=== PATIENT | female | born 1990 | race Hispanic/Latino ===

== ENCOUNTER 2016-11-03 22:52 | Emergency (ER) | payer OTHER ==
[2016-11-03] MEDS ORDERED: Zithromax 250 MG TABLET PO ONE (23:07)
[2016-11-03] MEDS ORDERED: PROVENTIL 2.5 MG/3 ML NEB IH ONE ×2 (23:07→23:18)
[2016-11-03] MEDS ORDERED: Zithromax 250 MG TABLET ONE (23:09)
--- NOTE | 2016-11-03 23:11 | ERPHSYRPT ---
- History of Present Illness Time Seen by Provider: 11/03/16 23:05 Source: patient Patient Subjective Stated Complaint: Pt sts sick x 4 days with cough that is productive however she does not know what color the sputum is because she swallows it. Sts fever at home. Denies vomiting/diarrhea. Sts body aches and headache. Sts sore throat. Triage Nursing Assessment: Pt alert, oriented, answers all questions appropriately. Skin p/w/d, resps non-labored. Pt ambulatory to tx room, steady gait noted. Lung sounds CTA bilat non-labored. Physician History: CC: cough Hx: 26 y/o healthy pt with no hx of lung disease. She has 4 day hx of cough, fever, congestion, aching. Symptoms moderate. LMP 1 1/2 weeks ago. Timing/Duration: day(s) (4) Allergies/Adverse Reactions: No Known Drug Allergies Allergy (Verified 11/03/16 23:02) Hx Tetanus, Diphtheria Vaccination/Date Given: Yes Hx Influenza Vaccination/Date Given: No Hx Pneumococcal Vaccination/Date Given: No Immunizations Up to Date: No - Review of Systems Constitutional: Fever, Chills, Fatigue, Malaise Eyes: No Symptoms Ears, Nose, & Throat: Nose Congestion Respiratory: Cough Abdominal/Gastrointestinal: No Vomiting, No Diarrhea Musculoskeletal: Myalgias Skin: No Rash - Past Medical History Pertinent Past Medical History: No - Past Surgical History Past Surgical History: No - Social History Smoking Status: Never smoker Exposure to second hand smoke: No Drug Use: none Patient Lives Alone: No - Female History Hx Last Menstrual Period: "before Lauren" - Nursing Vital Signs Nursing Vital Signs: Initial Vital Signs Temperature 100.7 F Temperature Source Oral Pulse Rate 97 Respiratory Rate 18 Blood Pressure 125/93 Pain Intensity 7 - Physical Exam General Appearance: alert Eye Exam: PERRL/EOMI Ears, Nose, Throat Exam: moist mucous membranes Neck Exam: normal inspection, non-tender, supple Respiratory Exam: normal breath sounds, lungs clear Cardiovascular Exam: regular rate/rhythm, No murmur Gastrointestinal/Abdomen Exam: soft, No tenderness, No distention Extremity Exam: normal inspection, normal range of motion Neurologic Exam: alert, oriented x 3, cooperative, sensation nml, No motor deficits Skin Exam: warm, dry, No rash SpO2 Interpretation: normal SpO2: 96 Oxygen Delivery: Room Air - Course Nursing assessment & vital signs reviewed: Yes Ordered Tests: Active Orders 24 hr Category Date Time Status Respiratory Nebulizer STAT RT 11/03/16 23:07 Active Medication Summary Generic Name Dose Route Start Last Admin Trade Name Nirmal PRN Reason Stop Dose Admin Albuterol Sulfate 2.5 mg 11/03/16 23:07 Proventil 2.5 Mg/3 Ml Neb IH 11/03/16 23:08 STAT ONE Azithromycin 500 mg 11/03/16 23:07 Zithromax 250 Mg Tablet PO 11/03/16 23:08 STAT ONE - Progress Progress Note: 11/03/16 23:09 Rx alb MDI and zithromax. Counseled pt/family regarding: diagnosis, need for follow-up - Departure Time of Disposition: 23:09 Departure Disposition: Home Clinical Impression: Acute bronchitis Qualifiers: Bronchitis organism: unspecified organism Qualified Code(s): J20.9 - Acute bronchitis, unspecified Condition: Stable Critical Care Time: No Referrals: KENDAL MORENO [Primary Care Provider] - Instructions: Cough -- Adult, Bronchitis Additional Instructions: UPPER RESPIRATORY INFECTIONS 1. The signs and symptoms of a cold may last up to 10 days. These illnesses are due to viruses which are not treatable with antibiotics. 2. The following suggestions can aid in recovery and to minimize symptoms: A. Increase fluid intake. B. Acetaminophen or Ibuprofen as directed. C. Avoid smoking environments as this will increase the risk of developing pneumonia. D. For children, may use a cool mist vaporizer in the child's room. 3. Contact your Family Physician if you note: A. Persisten fever >103 for more than 3 days B. Breathing difficulty C. Productive cough of yellow/green sputum D. Illness greater than 7 days E. Persistent vomiting F. Stiff neck Rx albuterol MDI. Rx zithromax. Follow up at Dr Moreno office in 1 week if not better. Prescriptions: Albuterol Sulfate [Albuterol Sulfate Hfa] 2 puff IH Q4-6HPRN PRN #1 [email or web address] PRN Reason: cough or wheeze Azithromycin 250 mg [Zithromax 250 MG TABLET] 1 tab PO DAILY #4 tablet
[2016-11-03 23:39] VITALS: BP 116/72; PULSE 96; O2SAT 97
== END 2016-11-03 23:38 | disposition home or self-care (01) ==
LOC: ED 22:52
DX: J20.9 Acute bronchitis, unspecified (principal)
CPT/HCPCS: 94640; 99282

== ENCOUNTER 2017-07-18 22:47 | Emergency (ER) | payer OTHER ==
[2017-07-18 22:55] VITALS: O2SAT 100
--- NOTE | 2017-07-18 23:03 | ERPHSYRPT ---
- History of Present Illness Time Seen by Provider: 07/18/17 22:55 Historian: patient Exam Limitations: no limitations Patient Subjective Stated Complaint: "I know that i am and am cramping. it started about 2 days ago" Triage Nursing Assessment: aox3, breathing easy unlabored, skin pink warm dry, steady gait Physician History: FOR THE PAST WEEK PT HAS HAD DIARRHEA; FOR THE PAST 2 DAYS ABDOMINAL CRAMPS AND NAUSEA; FOR THE PAST 2 HOURS INTERMITTENT LEFT ANTERIOR CHEST PAIN LASTING UP TO 1 MINUTE PER EPISODE. LMP = 06/09/17. Allergies/Adverse Reactions: No Known Drug Allergies Allergy (Verified 07/18/17 22:55) Home Medications: No Reportable Medications [No Reported Medications] 07/18/17 [History] Hx Tetanus, Diphtheria Vaccination/Date Given: Yes Hx Influenza Vaccination/Date Given: No Hx Pneumococcal Vaccination/Date Given: No - Review of Systems Respiratory: No Dyspnea Cardiac: Chest Pain Abdominal/Gastrointestinal: Abdominal Pain, Nausea, Diarrhea, No Vomiting All Other Systems: Reviewed and Negative - Past Medical History Pertinent Past Medical History: No - Past Surgical History Past Surgical History: No - Social History Smoking Status: Never smoker Exposure to second hand smoke: No Drug Use: none Patient Lives Alone: No - Female History Hx Last Menstrual Period: 06/09/17 - Nursing Vital Signs Nursing Vital Signs: Initial Vital Signs Temperature 98.8 F 07/18/17 22:50 Pulse Rate 89 07/18/17 22:50 Respiratory Rate 14 07/18/17 22:50 Blood Pressure 128/71 07/18/17 22:50 O2 Sat by Pulse Oximetry 100 07/18/17 22:50 - Physical Exam General Appearance: alert Eye Exam: PERRL/EOMI Ears, Nose, Throat Exam: pharynx normal, moist mucous membranes Neck Exam: normal inspection Respiratory Exam: lungs clear Cardiovascular Exam: normal heart sounds Gastrointestinal/Abdomen Exam: soft, normal bowel sounds Back Exam: normal range of motion Extremity Exam: normal inspection, No pedal edema Neurologic Exam: alert, cooperative Skin Exam: warm, dry SpO2 Interpretation: normal SpO2: 100 Oxygen Delivery: Room Air - Course Nursing assessment & vital signs reviewed: Yes EKG Interpreted by Me: RATE (73), Sinus Rhythm, NORMAL AXIS, NORMAL INTERVALS Ordered Tests: Active Orders 24 hr Category Date Time Status EKG-ER Only STAT Care 07/18/17 22:56 Active AMYLASE Stat Lab 07/18/17 23:05 Completed CBC W DIFF Stat Lab 07/18/17 23:05 Completed CMP Stat Lab 07/18/17 23:05 Completed HCG, Quantitative (Inhouse) Stat Lab 07/18/17 23:05 Completed LIPASE Stat Lab 07/18/17 23:05 Completed MAG [MAGNESIUM] Stat Lab 07/18/17 23:05 Completed TROPONIN Q3H Lab 07/18/17 23:05 Completed TROPONIN Q3H Lab 07/19/17 02:00 Ordered TROPONIN Q3H Lab 07/19/17 05:00 Ordered TROPONIN Q3H Lab 07/19/17 08:00 Ordered TROPONIN Q3H Lab 07/19/17 11:00 Ordered UA W/ MICROSCOPIC Stat Lab 07/18/17 23:35 Completed Lab/Rad Data: Laboratory Result Diagrams 07/18/17 23:05 07/18/17 23:05 Laboratory Results 07/18/17 07/18/17 07/18/17 Range/Units 23:35 23:05 23:05 WBC (4.0-10.5) K/mm3 RBC (4.1-5.4) M/mm3 Hgb (12.0-16.0) gm/dl Hct (35-47) % MCV (78-100) fl MCH (26-32) pg MCHC (32-36) g/dl RDW (11.5-14.0) % Plt Count (150-450) K/mm3 MPV (6-9.5) fl Gran % (36.0-66.0) % Lymphocytes % (24.0-44.0) % Monocytes % (0.0-12.0) % Eosinophils % (0.00-5.0) % Basophils % (0.0-0.4) % Basophils # (0-0.4) Sodium (136-145) mEq/L Potassium (3.5-5.1) mEq/L Chloride (98-107) mEq/L Carbon Dioxide (21-32) mEq/L Anion Gap (5-15) MEQ/L BUN (9-20) mg/dL Creatinine (0.55-1.30) mg/dl Estimated GFR ML/MIN Glucose (70-110) MG/DL Calcium (8.5-10.1) mg/dL Magnesium 1.9 (1.8-2.4) mg/dL Total Bilirubin (0.2-1.0) mg/dL AST (15-37) U/L ALT (12-78) U/L Alkaline Phosphatase (46-116) U/L Troponin I < 0.017 (0.000-0.056) ng/ml Serum Total Protein (6.4-8.2) gm/dL Albumin (3.4-5.0) g/dL Amylase (25-115) U/L Lipase (73-393) U/L Beta HCG, Quant (0-6) IU/L Ur Collection Type CLEAN CATCH Urine Color YELLOW (YELLOW) Urine Appearance CLEAR (CLEAR) Urine pH 7.0 (5-6) Ur Specific [place] 1.015 (1.005-1.025) Urine Protein NEGATIVE (Negative) Urine Ketones NEGATIVE (NEGATIVE) Urine Blood NEGATIVE (0-5) Bola/ul Urine Nitrite NEGATIVE (NEGATIVE) Urine Bilirubin NEGATIVE (NEGATIVE) Urine Urobilinogen NORMAL (0-1) mg/dL Ur Leukocyte Esterase 2+ (NEGATIVE) Urine Microscopic WBC 2-5 (0-5) /HPF Ur Epithelial Cells FEW (FEW) /HPF Urine Bacteria FEW (NEGATIVE) /HPF Urine Glucose NEGATIVE (NEGATIVE) mg/dL Specimen Received 07/18/17:2335 07/18/17 07/18/17 Range/Units 23:05 23:05 WBC 11.3 H (4.0-10.5) K/mm3 RBC 4.26 (4.1-5.4) M/mm3 Hgb 12.4 (12.0-16.0) gm/dl Hct 36.7 (35-47) % MCV 86.2 (78-100) fl MCH 29.1 (26-32) pg MCHC 33.8 (32-36) g/dl RDW 12.6 (11.5-14.0) % Plt Count 216 (150-450) K/mm3 MPV 12.1 H (6-9.5) fl Gran % 67.0 H (36.0-66.0) % Lymphocytes % 24.3 (24.0-44.0) % Monocytes % 7.1 (0.0-12.0) % Eosinophils % 1.1 (0.00-5.0) % Basophils % 0.5 (0.0-0.4) % Basophils # 0.06 (0-0.4) Sodium 142 (136-145) mEq/L Potassium 3.9 (3.5-5.1) mEq/L Chloride 106 (98-107) mEq/L Carbon Dioxide 26.8 (21-32) mEq/L Anion Gap 12.9 (5-15) MEQ/L BUN 10 (9-20) mg/dL Creatinine 0.80 (0.55-1.30) mg/dl Estimated GFR > 60 ML/MIN Glucose 111 H (70-110) MG/DL Calcium 9.2 (8.5-10.1) mg/dL Magnesium (1.8-2.4) mg/dL Total Bilirubin 0.20 (0.2-1.0) mg/dL AST 18 (15-37) U/L ALT 50 (12-78) U/L Alkaline Phosphatase 71 (46-116) U/L Troponin I (0.000-0.056) ng/ml Serum Total Protein 7.4 (6.4-8.2) gm/dL Albumin 3.9 (3.4-5.0) g/dL Amylase 51 (25-115) U/L Lipase 168 (73-393) U/L Beta HCG, Quant 932 H (0-6) IU/L Ur Collection Type Urine Color (YELLOW) Urine Appearance (CLEAR) Urine pH (5-6) Ur Specific [place] (1.005-1.025) Urine Protein (Negative) Urine Ketones (NEGATIVE) Urine Blood (0-5) Bola/ul Urine Nitrite (NEGATIVE) Urine Bilirubin (NEGATIVE) Urine Urobilinogen (0-1) mg/dL Ur Leukocyte Esterase (NEGATIVE) Urine Microscopic WBC (0-5) /HPF Ur Epithelial Cells (FEW) /HPF Urine Bacteria (NEGATIVE) /HPF Urine Glucose (NEGATIVE) mg/dL Specimen Received - Departure Time of Disposition: 23:58 Departure Disposition: Home Clinical Impression: DIARRHEA, ABDOMINAL CRAMPS, CHEST PAIN, 3-4 WEEKS Condition: Stable Critical Care Time: No Referrals: KENDAL MORENO [Primary Care Provider] - Instructions: -- Discomforts and Remedies, Threatened , Diarrhea and Traveler's Diarrhea -- Adult Additional Instructions: FOLLOW UP WITH PRIVATE DOCTOR TOMORROW.
[2017-07-18 23:10] LABS: BASOPHIL % 0.5 % (0.0-0.4); Eosinophil % 1.1 % (0.00-5.0); Lymphocytes % 24.3 % (24.0-44.0); Mean Cell Volume 86.2 fl (78-100); Mean Corpuscular Hemoglobin 29.1 pg (26-32); Mean Platelet Volume 12.1 fl (6-9.5); Monocytes % 7.1 % (0.0-12.0); Platelet Count 216 K/mm3 (150-450); Red Blood Count 4.26 M/mm3 (4.1-5.4); Red Cell Distribution Width 12.6 % (11.5-14.0); White Blood Count 11.3 K/mm3 (4.0-10.5)
[2017-07-18 23:41] LABS: ADD URINE CULTURE? NO (NO); Bilirubin NEGATIVE (NEGATIVE); Blood NEGATIVE Ery/ul (0-5); COMPLETE URINE MICROSCOPIC? YES; Collection Type CLEAN CATCH; Glucose NEGATIVE (NEGATIVE); Leukocyte Esterase 2+ (NEGATIVE)
[2017-07-18 23:42] LABS: Bacteria FEW /HPF (NEGATIVE); Epithelial Cells FEW /HPF (FEW)
[2017-07-18 23:45] LABS: ALBUMIN 3.9 g/dL (3.4-5.0); ALKALINE PHOSPHATASE 71 U/L (46-116); ANION GAP 12.9 MEQ/L (5-15); BLOOD UREA NITROGEN 10 mg/dL (9-20); CHLORIDE 106 mEq/L (98-107); Carbon Dioxide 26.8 mEq/L (21-32); Glucose 111 MG/DL (70-110); HCG, Quantitative (Inhouse) 932 IU/L (0-6); LIPASE 168 U/L (73-393); Potassium 3.9 mEq/L (3.5-5.1); SGOT/AST 18 U/L (15-37); SGPT/ALT 50 U/L (12-78); SODIUM 142 mEq/L (136-145); Total Protein 7.4 gm/dL (6.4-8.2)
[2017-07-19 00:06] VITALS: BP 110/67; PULSE 75
== END 2017-07-19 00:05 | disposition home or self-care (01) ==
LOC: ED 22:47
DX: O26.891 Other specified pregnancy related conditions, first trimester (principal); R19.7 Diarrhea, unspecified; R10.9 Unspecified abdominal pain; R07.9 Chest pain, unspecified; Z3A.01 Less than 8 weeks gestation of pregnancy
CPT/HCPCS: 36415; 80053; 81000; 82150; 83690; 83735; 84484; 84702; 85025; 93005; 99282; 99284

== ENCOUNTER 2018-10-04 03:09 | Emergency (ER) | payer BC, OTHER ==
--- NOTE | 2018-10-04 03:36 | ERPHSYRPT ---
- History of Present Illness Time Seen by Provider: 10/04/18 03:26 Historian: patient Exam Limitations: no limitations Patient Subjective Stated Complaint: PT STATES SHE HAS HAD N/V/D SINCE APPROX 1600 Triage Nursing Assessment: pt alert and oriented, asnwers questions approp. pt arrive per ambulance. transfer with assist of 3 to stretcher. repsirations nonlabored with lungs cta. abd soft and nontender to light palpation. no emesis at this time. Physician History: This is a 27-year-old white female she arrives with complaint of nausea vomiting right lower quadrant abdominal pain and diarrhea symptoms since 4:00 yesterday afternoon. She has no fevers. No urinary symptoms. Past medical history gestational diabetes. Past surgical history is negative. Social history patient denies tobacco alcohol or illicit drug use Timing/Duration: today Activities at Onset: none Quality: cramping Abdominal Pain Onset Location: RLQ Modifying Factors: Improves With: nothing Associated Symptoms: back, diarrhea, nausea, vomiting, No chest pain, No diaphoresis, No fever/chills, No fatigue, No headache, No heartburn, No loss of appetite, No neck pain, No rash, No shortness of breath, No syncope Previous symptoms: no prior history Allergies/Adverse Reactions: No Known Drug Allergies Allergy (Verified 07/18/17 22:55) Hx Tetanus, Diphtheria Vaccination/Date Given: Yes Hx Influenza Vaccination/Date Given: No Hx Pneumococcal Vaccination/Date Given: No Immunizations Up to Date: Yes - Review of Systems Constitutional: No Fever, No Chills Eyes: Eye Redness, Other (right eye redness), No Vision Changes Ears, Nose, & Throat: No Symptoms Respiratory: No Cough, No Dyspnea Cardiac: No Chest Pain, No Edema, No Syncope Abdominal/Gastrointestinal: Abdominal Pain (right lower quadrant abdominal pain) , Nausea, Vomiting, Diarrhea, No Constipation, No Hematemesis, No Hematochezia, No Melena, No Dysphagia, No Appetite Changes Genitourinary Symptoms: No Dysuria Musculoskeletal: No Back Pain, No Neck Pain Skin: No Rash Neurological: No Dizziness, No Focal Weakness, No Sensory Changes Psychological: No Symptoms Endocrine: No Symptoms All Other Systems: Reviewed and Negative - Past Medical History Pertinent Past Medical History: No Other Medical History: GESTATIONAL DIABETES - Past Surgical History Past Surgical History: No - Social History Smoking Status: Never smoker Exposure to second hand smoke: No Drug Use: none Patient Lives Alone: No - Female History Hx Last Menstrual Period: LAST WEEK Hx Now: No (NEG TEST AT HOME) - Nursing Vital Signs Nursing Vital Signs: Initial Vital Signs Temperature 99.0 F 10/04/18 03:16 Pulse Rate 86 10/04/18 03:16 Respiratory Rate 18 10/04/18 03:16 Blood Pressure 94/64 10/04/18 03:16 O2 Sat by Pulse Oximetry 99 10/04/18 03:16 Pain Scale Pain Intensity 0 - Physical Exam General Appearance: mild distress Eye Exam: PERRL/EOMI, other (right conjunctiva erythematous, fundi unremarkable) Ears, Nose, Throat Exam: normal ENT inspection, pharynx normal, moist mucous membranes Neck Exam: normal inspection, non-tender, supple, full range of motion Respiratory Exam: normal breath sounds, lungs clear, No respiratory distress Cardiovascular Exam: regular rate/rhythm, normal heart sounds Gastrointestinal/Abdomen Exam: soft, normal bowel sounds, tenderness (lower abdominal tenderness), No distention, No mass, No guarding, No rebound Back Exam: normal inspection, normal range of motion, No CVA tenderness, No vertebral tenderness Extremity Exam: normal inspection, normal range of motion, pelvis stable Neurologic Exam: alert, oriented x 3, cooperative, peanut sheller II-XII nml as tested, normal mood/affect, nml cerebellar function, sensation nml, No motor deficits Skin Exam: normal color, warm, dry SpO2 Interpretation: normal (99%) SpO2: 99 Oxygen Delivery: Room Air - Course Nursing assessment & vital signs reviewed: Yes - CT Exams Abdomen/Pelvis CT Interpretation: Tele-radiologist Report (CT of the abdomen and pelvis with contrast:1. Normal appendix 2. layering gallstones or sludge noted 3. The small bowel is mildly distended with fluid and gas. No evidence of mechanical obstruction. There is mild mucosal thickening as well as mild mucosal enhancement throughout much of the small bowel. The appearance suggests the presence of enteritis. 4. Mild cystic changes noted in both ovaries, no large ovarian cysts identified. 5. Mild splenomegaly. The splenic index measures approximately 750.) Ordered Tests: Active Orders 24 hr Category Date Time Status IV Insertion STAT Care 10/04/18 03:30 Active Visual Acuity STAT Care 10/04/18 03:35 Active ABDOMEN AND PELVIS W CONTRAST [CT] Stat Exams 10/04/18 04:21 Taken AMYLASE Stat Lab 10/04/18 03:45 Completed CBC W DIFF Stat Lab 10/04/18 03:45 Completed CMP Stat Lab 10/04/18 03:45 Completed CULTURE,URINE Stat Lab 10/04/18 06:21 Received HCG QUALITATIVE,SERUM Stat Lab 10/04/18 03:45 Completed LIPASE Stat Lab 10/04/18 03:45 Completed UA W/RFX UR CULTURE Stat Lab 10/04/18 06:21 Completed Medication Summary Discontinued Medications Generic Name Dose Route Start Last Admin Trade Name Youngq PRN Reason Stop Dose Admin Sodium Chloride 1,000 mls @ 999 mls/hr 10/04/18 03:30 10/04/18 03:52 Sodium Chloride 0.9% 1000 Ml IV 10/04/18 04:30 999 mls/hr .Q1H1M STA Administration Sodium Chloride Confirm 10/04/18 03:45 Sodium Chloride 0.9% 1000 Ml Administered 10/04/18 03:46 Dose 1,000 mls @ ud .ROUTE .STK-MED ONE Sodium Chloride 1,000 mls @ 100 mls/hr 10/04/18 06:00 10/04/18 07:26 Sodium Chloride 0.9% 1000 Ml IV 11/03/18 05:59 0 mls/hr .Q10H MARGARET Infusion Sodium Chloride Confirm 10/04/18 06:27 Sodium Chloride 0.9% 1000 Ml Administered 10/04/18 06:28 Dose 1,000 mls @ ud .ROUTE .STK-MED ONE Morphine Sulfate 4 mg 10/04/18 03:30 10/04/18 03:51 Morphine Sulfate 4 Mg Inj IV 10/04/18 03:31 4 mg STAT ONE Administration Morphine Sulfate Confirm 10/04/18 03:44 Morphine Sulfate 4 Mg Inj Administered 10/04/18 03:45 Dose 4 mg .ROUTE .STK-MED ONE Ondansetron HCl 4 mg 10/04/18 03:30 10/04/18 03:52 Zofran 4 Mg/2 Ml Vial IV 10/04/18 03:31 4 mg STAT ONE Administration Ondansetron HCl Confirm 10/04/18 03:44 Zofran 4 Mg/2 Ml Vial Administered 10/04/18 03:45 Dose 4 mg .ROUTE .STK-MED ONE Lab/Rad Data: Laboratory Result Diagrams 10/04/18 03:45 10/04/18 03:45 Laboratory Results 10/04/18 10/04/18 10/04/18 Range/Units 06:21 03:45 03:45 WBC (4.0-10.5) K/mm3 RBC (4.1-5.4) M/mm3 Hgb (12.0-16.0) gm/dl Hct (35-47) % MCV (78-100) fl MCH (26-32) pg MCHC (32-36) g/dl RDW (11.5-14.0) % Plt Count (150-450) K/mm3 MPV (6-9.5) fl Gran % (36.0-66.0) % Eos # (Auto) (0-0.5) Absolute Lymphs (auto) (1.0-4.6) Absolute Monos (auto) (0.0-1.3) Lymphocytes % (24.0-44.0) % Monocytes % (0.0-12.0) % Eosinophils % (0.00-5.0) % Basophils % (0.0-0.4) % Absolute Granulocytes (1.4-6.9) Basophils # (0-0.4) Sodium 140 (137-145) mmol/L Potassium 3.6 (3.5-5.1) mmol/L Chloride 103 (98-107) mmol/L Carbon Dioxide 26 (22-30) mmol/L Anion Gap 13.6 (5-15) MEQ/L BUN 17 (7-17) mg/dL Creatinine 0.60 (0.52-1.04) mg/dL Estimated GFR > 60.0 ML/MIN Glucose 110 H (74-106) mg/dL Calcium 9.0 (8.4-10.2) mg/dL Total Bilirubin 0.50 (0.2-1.3) mg/dL AST 27 (14-36) U/L ALT 35 (0-35) U/L Alkaline Phosphatase 77 (38-126) U/L Serum Total Protein 7.9 (6.3-8.2) g/dL Albumin 4.7 (3.5-5.0) g/dL Amylase 93 (30-110) U/L Lipase 126 (23-300) U/L Serum , Qual NEGATIVE (Negative) Urine Color YELLOW (YELLOW) Urine Appearance SLIGHTLY CLOUDY (CLEAR) Urine pH 6.0 (5-6) Ur Specific [place] 1.054 (1.005-1.025) Urine Protein NEGATIVE (Negative) Urine Ketones NEGATIVE (NEGATIVE) Urine Blood NEGATIVE (0-5) Bola/ul Urine Nitrite NEGATIVE (NEGATIVE) Urine Bilirubin NEGATIVE (NEGATIVE) Urine Urobilinogen NEGATIVE (0-1) mg/dL Ur Leukocyte Esterase SMALL (NEGATIVE) Urine WBC (Auto) 3-5 (0-5) /HPF Urine RBC (Auto) 0-2 (0-2) /HPF U Epithel Cells (Auto) FEW (FEW) /HPF Urine Bacteria (Auto) FEW (NEGATIVE) /HPF Urine Mucus (Auto) SLIGHT (NEGATIVE) /HPF Urine Culture Reflexed YES (NO) Urine Glucose NEGATIVE (NEGATIVE) mg/dL 10/04/18 Range/Units 03:45 WBC 10.3 (4.0-10.5) K/mm3 RBC 5.01 (4.1-5.4) M/mm3 Hgb 14.4 (12.0-16.0) gm/dl Hct 42.2 (35-47) % MCV 84.2 (78-100) fl MCH 28.7 (26-32) pg MCHC 34.1 (32-36) g/dl RDW 12.9 (11.5-14.0) % Plt Count 201 (150-450) K/mm3 MPV 11.6 H (6-9.5) fl Gran % 91.2 H (36.0-66.0) % Eos # (Auto) 0.03 (0-0.5) Absolute Lymphs (auto) 0.36 L (1.0-4.6) Absolute Monos (auto) 0.50 (0.0-1.3) Lymphocytes % 3.5 L (24.0-44.0) % Monocytes % 4.9 (0.0-12.0) % Eosinophils % 0.3 (0.00-5.0) % Basophils % 0.1 (0.0-0.4) % Absolute Granulocytes 9.40 H (1.4-6.9) Basophils # 0.01 (0-0.4) Sodium (137-145) mmol/L Potassium (3.5-5.1) mmol/L Chloride (98-107) mmol/L Carbon Dioxide (22-30) mmol/L Anion Gap (5-15) MEQ/L BUN (7-17) mg/dL Creatinine (0.52-1.04) mg/dL Estimated GFR ML/MIN Glucose (74-106) mg/dL Calcium (8.4-10.2) mg/dL Total Bilirubin (0.2-1.3) mg/dL AST (14-36) U/L ALT (0-35) U/L Alkaline Phosphatase (38-126) U/L Serum Total Protein (6.3-8.2) g/dL Albumin (3.5-5.0) g/dL Amylase (30-110) U/L Lipase (23-300) U/L Serum , Qual (Negative) Urine Color (YELLOW) Urine Appearance (CLEAR) Urine pH (5-6) Ur Specific [place] (1.005-1.025) Urine Protein (Negative) Urine Ketones (NEGATIVE) Urine Blood (0-5) Bola/ul Urine Nitrite (NEGATIVE) Urine Bilirubin (NEGATIVE) Urine Urobilinogen (0-1) mg/dL Ur Leukocyte Esterase (NEGATIVE) Urine WBC (Auto) (0-5) /HPF Urine RBC (Auto) (0-2) /HPF U Epithel Cells (Auto) (FEW) /HPF Urine Bacteria (Auto) (NEGATIVE) /HPF Urine Mucus (Auto) (NEGATIVE) /HPF Urine Culture Reflexed (NO) Urine Glucose (NEGATIVE) mg/dL - Progress Progress: improved Progress Note: 10/04/18 07:05 This is a 27-year-old white female who arrives with complaint of lower abdominal pain nausea vomiting symptoms since yesterday afternoon. Patient stated the pain in her abdomen as bilateral crampy Patient with labs, white blood cell 10.3 hemoglobin 14.4 hematocrit 42.2 platelets 201 hCG is negative chemistry sodium 140 potassium 3.6 chloride 103 bicarbonate 26 BUN 17 creatinine 0.06 glucose [address] of the abdomen that shows normal appendix, layering gallstones or sludge noted. (This is not where patient complains of pain) the small bowel is mildly distended with fluid and gas with no evidence of mechanical obstruction. There is mucosal thickening as well as mild mucosal enhancement throughout much of the small bowel the appearance suggests the presence of enteritis. There are mild cystic changes noted in both ovaries no large ovarian cysts are identified, There is mild splenomegaly or splenic index measures approximately 750. Patient is improved but not completely pain-free after IV morphine and IV Zofran IV normal saline. Will discharge patient with prescription for Flagyl 500 mg orally 3 times a day for 7 days,. [place] 5/325 one orally every 4-6 hours as needed for pain #10. And Zofran 4 mg orally every 6 hours as needed for nausea and vomiting. Patient has been advised to follow-up with her family doctor. She is to take clear fluids only 24-48 hours if abdominal pain, nausea or vomiting. 10/04/18 07:30 patient given ciloxin ophthalmic drops for right conjunctivitis. - Departure Time of Disposition: 07:08 Departure Disposition: Home Clinical Impression: Enteritis Abdominal pain Qualifiers: Abdominal location: lower abdomen, unspecified Qualified Code(s): R10.30 - Lower abdominal pain, unspecified Nausea and vomiting Qualifiers: Vomiting type: unspecified Vomiting Intractability: non-intractable Qualified Code(s): R11.2 - Nausea with vomiting, unspecified Conjunctivitis Qualifiers: Conjunctivitis type: acute Acute conjunctivitis type: unspecified Laterality: right Qualified Code(s): H10.31 - Unspecified acute conjunctivitis, right eye Condition: Fair Critical Care Time: No Referrals: KENDLA MORENO [ACTIVE STAFF] - Additional Instructions: Return home. Plenty of fluids clear fluids only 24-48 hours if abdominal pain, nausea, or vomiting. Flagyl as prescribed. [place] as prescribed. Zofran as prescribed. Follow-up with your family doctor. Return for acute distress or for severe symptoms. Prescriptions: Ondansetron ODT 4 MG [Zofran Odt 4 mg] 4 mg PO Q6H PRN PRN #10 tab.rapdis PRN Reason: nausea and vomiting Hydrocodone/Acetaminophen [[place] 5-325 Tablet] 1 tab PO Q4-6HPRN PRN #10 tablet MDD 6 tablets PRN Reason: Pain Metronidazole 500 mg [Flagyl 500 MG] 500 mg PO TID #21 tablet
[2018-10-04] MEDS ORDERED: MORPHINE SULFATE 4 MG INJ ONE (03:44)
[2018-10-04] MEDS ORDERED: Zofran 4 MG/2 ML VIAL ONE (03:44)
[2018-10-04] MEDS ORDERED: Sodium Chloride 0.9% 1000 ML 1,000 ML ONE ×2 (03:45→06:27)
[2018-10-04] MEDS: MORPHINE SULFATE 4 MG INJ IV ONE (03:51)
[2018-10-04] MEDS: Zofran 4 MG/2 ML VIAL IV ONE (03:52)
[2018-10-04] MEDS: Sodium Chloride 0.9% 1000 ML 1,000 ML IV STA (03:52)
[2018-10-04 04:02] LABS: ALBUMIN 4.7 g/dL (3.5-5.0); ALKALINE PHOSPHATASE 77 U/L (38-126); AMYLASE 93 U/L (30-110); ANION GAP 13.6 MEQ/L (5-15); BLOOD UREA NITROGEN 17 mg/dL (7-17); CHLORIDE 103 mmol/L (98-107); Carbon Dioxide 26 mmol/L (22-30); Glucose 110 mg/dL (74-106); LIPASE 126 U/L (23-300); Potassium 3.6 mmol/L (3.5-5.1); SGOT/AST 27 U/L (14-36); SGPT/ALT 35 U/L (0-35); SODIUM 140 mmol/L (137-145); Total Protein 7.9 g/dL (6.3-8.2)
[2018-10-04 04:03] LABS: BASOPHIL % 0.1 % (0.0-0.4); Basophil (Absolute #) 0.01 (0-0.4); Eosinophil % 0.3 % (0.00-5.0); Eosinophil (Absolute #) 0.03 (0-0.5); Granulocytes % 91.2 % (36.0-66.0); Hematocrit 42.2 % (35-47); Hemoglobin 14.4 gm/dl (12.0-16.0); Lymphocyte (Absolute #) 0.36 (1.0-4.6); Lymphocytes % 3.5 % (24.0-44.0); Mean Cell Volume 84.2 fl (78-100); Mean Corpuscular Hemoglobin 28.7 pg (26-32); Mean Corpuscular Hgb Concent. 34.1 g/dl (32-36); Mean Platelet Volume 11.6 fl (6-9.5); Monocytes % 4.9 % (0.0-12.0); Platelet Count 201 K/mm3 (150-450); Red Blood Count 5.01 M/mm3 (4.1-5.4); Red Cell Distribution Width 12.9 % (11.5-14.0); White Blood Count 10.3 K/mm3 (4.0-10.5)
[2018-10-04] MEDS: Sodium Chloride 0.9% 1000 ML 1,000 ML IV SCH (06:28)
[2018-10-04 06:54] LABS: Appearance SLIGHTLY CLOUDY (CLEAR); Bilirubin NEGATIVE (NEGATIVE); Blood NEGATIVE Ery/ul (0-5); Glucose NEGATIVE (NEGATIVE); Ketones NEGATIVE (NEGATIVE); Leukocyte Esterase SMALL (NEGATIVE); Nitrite NEGATIVE (NEGATIVE); Protein,Urine Dip NEGATIVE (Negative); Specific Gravity 1.054 (1.005-1.025); Urobilinogen NEGATIVE mg/dL (0-1)
[2018-10-04 07:24] VITALS: BP 101/62; PULSE 101
[2018-10-04 07:31] VITALS: O2SAT 99
--- NOTE | 2018-10-04 09:00 | XRAY ---
Indication: Lower abdominal pain. Nausea, vomiting, diarrhea, and fever. Multiple contiguous axial images obtained through the abdomen and pelvis using 80 cc Isovue 370 contrast only. Comparison: None Lung bases demonstrate tiny left base calcified granuloma. No infiltrate or effusion. Heart is not enlarged. Noncontrasted stomach and bowel loops appear nonobstructed. Several small bowel loops mildly fluid distended with circumferential wall thickening/enhancement favoring enteritis. Normal appendix. No free fluid/air. Minimal gallbladder sludge/gravel in the dependent portion. Splenomegaly measuring 14.7 cm in greatest axial dimension. A few nonobstructing bilateral renal micro-calculi, largest 7 mm in the right upper pole. Right kidney also demonstrates a 4.3 cm cyst. Remaining liver, pancreas, spleen, adrenal glands, left kidney, left ureter, bladder, uterus, and aorta appear unremarkable. No pathologic retroperitoneal lymphadenopathy. Osseous structures intact. No ventral or inguinal hernias. Impression: 1. CT findings favoring enteritis. No complications. 2. Gallbladder sludge/gravel better evaluated with sonogram if clinically warranted. 3. Incidental splenomegaly, nonobstructing bilateral renal micro-calculi, and right renal cyst. Comment: Preliminary interpretation was made by [facility]. Incidental finding for renal calculi not reported. CTDI 23.01
== END 2018-10-04 07:22 | disposition home or self-care (01) ==
LOC: ED 03:09
DX: K52.9 Noninfective gastroenteritis and colitis, unspecified (principal); R11.2 Nausea with vomiting, unspecified; R10.31 Right lower quadrant pain; H10.9 Unspecified conjunctivitis
CPT/HCPCS: 36000; 36415; 74177; 80053; 81001; 81025; 82150; 83690; 85025; 87086; 96360; 96361; 96374; 96375; 99284; J2270; J2405

== ENCOUNTER 2019-03-28 09:29 | Emergency (ER) | payer BC ==
[2019-03-28 10:30] LABS: Appearance SLIGHTLY CLOUDY (CLEAR); Bacteria RARE /HPF (NEGATIVE); Bilirubin NEGATIVE (NEGATIVE); Blood SMALL Ery/ul (0-5); Epithelial Cells MODERATE /HPF (FEW); Glucose NEGATIVE (NEGATIVE); Ketones NEGATIVE (NEGATIVE); Leukocyte Esterase SMALL (NEGATIVE); Mucus SLIGHT /HPF (NEGATIVE); Nitrite NEGATIVE (NEGATIVE); Protein,Urine Dip NEGATIVE (Negative); RBC 0-2 /HPF (0-2); Specific Gravity 1.006 (1.005-1.025); Urobilinogen NEGATIVE mg/dL (0-1)
--- NOTE | 2019-03-28 11:50 | ERPHSYRPT ---
- History of Present Illness Source: patient Exam Limitations: no limitations Patient Subjective Stated Complaint: lower abd cramping and vaginal itching for three days. is and denies any vaginal bleeding or discharge. does however have vaginal itching. Triage Nursing Assessment: ambulated to room per self. skin w/d, color normal. abd soft. Physician History: Pt is a 28 y/o female that had a positive test, and now has abdominal cramps. Pt is unsure about date of last period. She did have blood test to confirm , but did not see an ob, yet. Pt states, has abdominal cramps , and it never happened to her before. Pt denies F/C/S. No vaginal bleeding, she has some vaginal itchiness, but no discharge. No frequecy, urgency or dysuria. Timing/Duration: today Activites at Onset: none Quality: cramping Onset Location: periumbilical Pain Radiation: none Severity of Pain-Max: mild Severity of Pain-Current: mild Prior abdominal problems: none Modifying Factors: Improves With: nothing Associated Symptoms: denies symptoms Allergies/Adverse Reactions: No Known Drug Allergies Allergy (Verified 07/18/17 22:55) Hx Tetanus, Diphtheria Vaccination/Date Given: Yes Hx Influenza Vaccination/Date Given: No Hx Pneumococcal Vaccination/Date Given: No - Review of Systems Constitutional: No Fever, No Chills Respiratory: No Cough, No Dyspnea Cardiac: No Chest Pain, No Edema, No Syncope Abdominal/Gastrointestinal: Abdominal Pain (cramps) Genitourinary Symptoms: Vaginal Itching Musculoskeletal: No Back Pain, No Neck Pain Neurological: No Dizziness, No Focal Weakness, No Sensory Changes Psychological: No Symptoms - Past Medical History Pertinent Past Medical History: Yes Psycho-Social History: Depression Other Medical History: GESTATIONAL DIABETES - Past Surgical History Past Surgical History: No - Social History Smoking Status: Never smoker Exposure to second hand smoke: No Drug Use: none Patient Lives Alone: No - Female History Hx Last Menstrual Period: february 05 Hx Now: Yes - Nursing Vital Signs Nursing Vital Signs: Initial Vital Signs Temperature 97.9 F 03/28/19 09:31 Pulse Rate 72 03/28/19 09:31 Respiratory Rate 16 03/28/19 09:31 Blood Pressure 95/57 03/28/19 09:31 O2 Sat by Pulse Oximetry 100 03/28/19 09:31 Pain Scale Pain Intensity 4 - Physical Exam General Appearance: no apparent distress, alert Eye Exam: PERRL/EOMI, eyes nml inspection Ears, Nose, Throat Exam: normal ENT inspection, TMs normal, pharynx normal, moist mucous membranes Neck Exam: normal inspection, non-tender, supple, full range of motion Respiratory Exam: normal breath sounds, lungs clear, No respiratory distress Cardiovascular Exam: regular rate/rhythm, normal heart sounds, normal peripheral pulses Gastrointestinal/Abdomen Exam: soft, No tenderness, No mass Pelvic Exam: not done Back Exam: normal inspection, normal range of motion, No CVA tenderness, No vertebral tenderness Extremity Exam: normal inspection, normal range of motion, pelvis stable Neurologic Exam: alert, oriented x 3, cooperative, tool smith II-XII nml as tested, normal mood/affect, sensation nml, No motor deficits SpO2: 100 - Radiology Ultrasound Exam Pelvis Ultrasound: tele radiology report (Gestational sac is seen. 5 weeks based on size.) Ordered Tests: Active Orders 24 hr Category Date Time Status OB <14 WKS 1ST GESTATION [US] Stat Exams 03/28/19 09:49 Taken CULTURE,URINE Stat Lab 03/28/19 10:00 Received HCG, Quantitative (Inhouse) Stat Lab 03/28/19 10:10 Completed UA W/RFX UR CULTURE Stat Lab 03/28/19 10:00 Completed Lab/Rad Data: Laboratory Results 03/28/19 03/28/19 Range/Units 10:10 10:00 Beta HCG, Quant [id number] mIU/ml Urine Color YELLOW (YELLOW) Urine Appearance SLIGHTLY CLOUDY (CLEAR) Urine pH 7.0 (5-6) Ur Specific [place] 1.006 (1.005-1.025) Urine Protein NEGATIVE (Negative) Urine Ketones NEGATIVE (NEGATIVE) Urine Blood SMALL (0-5) Bola/ul Urine Nitrite NEGATIVE (NEGATIVE) Urine Bilirubin NEGATIVE (NEGATIVE) Urine Urobilinogen NEGATIVE (0-1) mg/dL Ur Leukocyte Esterase SMALL (NEGATIVE) Urine WBC (Auto) 3-5 (0-5) /HPF Urine RBC (Auto) 0-2 (0-2) /HPF U Epithel Cells (Auto) MODERATE (FEW) /HPF Urine Bacteria (Auto) RARE (NEGATIVE) /HPF Urine Mucus (Auto) SLIGHT (NEGATIVE) /HPF Urine Culture Reflexed YES (NO) Urine Glucose NEGATIVE (NEGATIVE) mg/dL - Progress Progress: unchanged Air Movement: good Progress Note: 03/28/19 11:50 Pt had guantitive HCG, UA and pelvic US. All were normal, and appropriate to age if . Pt was advised to f/u with Ob, for more extensive work up. For itching, pt should use local anti fungal creams or suppositories. Blood Culture(s) Obtained: No Antibiotics given: No Will see patient in: office Counseled pt/family regarding: need for follow-up - Departure Departure Disposition: Home Clinical Impression: Abdominal cramps Condition: Stable Critical Care Time: No Referrals: ADARSH ALVAREZ, [Primary Care Provider] - Additional Instructions: F/U with Ob for more testing. Use OTC anti fungal creams or suppositories for vaginal itch.
[2019-03-28 12:04] VITALS: BP 96/61; PULSE 70; O2SAT 99
--- NOTE | 2019-03-28 20:16 | XRAY ---
Indication: Cramping. . Two-dimensional transabdominal early OB ultrasound performed. Comparison: None There is a single intrauterine gestational sac measuring 1.32 cm corresponding to 5 weeks 4 days. No pole, yolk sac, or heart tones. 2.1 cm right ovary corpus luteal cyst. Left ovary unremarkable. No suspicious adnexal mass or free fluid. Impression: Single intrauterine gestational sac measuring 5 weeks 4 days. No pole/heart tones presumed early . Correlate with serial beta hCG and follow-up sonogram regarding viability. Comment: Preliminary report was given.
== END 2019-03-28 12:04 | disposition home or self-care (01) ==
LOC: ED 09:29
DX: R10.30 Lower abdominal pain, unspecified (principal); Z32.01 Encounter for pregnancy test, result positive
CPT/HCPCS: 36415; 76801; 81001; 84702; 87086; 99283